=== PATIENT | female | born 1970 | race Caucasian/White ===

== ENCOUNTER 2019-09-07 11:00 | Emergency (ER) | payer MEDICAID ==
[~2019-09-07] VITALS: Ht 157.5 cm; Wt 74.1 kg
[2019-09-07] MEDS ORDERED: ACETAMINOPHEN 325 MG TABLET PO ONE (12:15)
[2019-09-07] MEDS ORDERED: SODIUM CHLORIDE 0.9% 1,000 ML IV ONE (12:15)
[2019-09-07] MEDS ORDERED: ONDANSETRON HCL 4 MG/2 ML VIAL IVP ONE (12:15)
[2019-09-07] MEDS ORDERED: KETOROLAC TROMETHAMINE 30 MG/ML VIAL IVP ONE (12:15)
[2019-09-07] MEDS ORDERED: LISINOPRIL 10 MG TABLET PO ONE (15:15)
[2019-09-07 15:36] VITALS: BP 167/90
== END 2019-09-07 15:39 | disposition home or self-care (01) ==
LOC: EDUNIT# 11:00 → EMS 11:23
DX: S09.90XA Unspecified injury of head, initial encounter (principal); R51 Headache; R11.2 Nausea with vomiting, unspecified; F17.210 Nicotine dependence, cigarettes, uncomplicated; J45.909 Unspecified asthma, uncomplicated; Z88.0 Allergy status to penicillin; Z88.8 Allergy status to other drugs, medicaments and biological substances; W19.XXXA Unspecified fall, initial encounter; Y93.89 Activity, other specified; Y92.89 Other specified places as the place of occurrence of the external cause; Y99.8 Other external cause status
CPT/HCPCS: 70450; 96361; 96374; 96375; 99284; J1885; J2405; J7030